=== PATIENT | male | born 1960 | race Caucasian/White ===

== ENCOUNTER 2024-11-07 17:38 | Inpatient (IN) | payer OTHER ==
[~2024-11-07] VITALS: Ht 188 cm; Wt 104.3 kg
[2024-11-07 20:00] VITALS: BP 122/85; PULSE 48; RESP 20; TEMP 97.9; O2SAT 98
[2024-11-07] MEDS ORDERED: MELATONIN 3 MG TABLET PO PRN (20:45)
[2024-11-07] MEDS ORDERED: DOCUSATE SODIUM 100 MG CAPSULE PO SCH (21:00)
[2024-11-07] MEDS ORDERED: SENNOSIDES 8.6 MG TABLET PO SCH (21:00)
[2024-11-07] MEDS ORDERED: BISACODYL 10 MG RECTAL RECTAL SUPPOSITORY PR PRN (21:30)
[2024-11-07] MEDS ORDERED: SENNOSIDES/DOCUSATE SODIUM 8.6-50 MG TABLET PO PRN (21:30)
[2024-11-07] MEDS ORDERED: HYDROCODONE/ACETAMINOPHEN 5-325 MG TABLET PO PRN (21:30)
[2024-11-07] MEDS ORDERED: LACTULOSE 20 GM/30 ML SOLUTION UDCUP PO PRN (21:30)
[2024-11-07] MEDS: APIXABAN 5 MG TABLET PO ONE (23:25)
[2024-11-07] MEDS: FAMOTIDINE 20 MG TABLET PO ONE (23:25)
[2024-11-07 23:40] LABS: GLUCOMETER DEV NAME(LOC) 2WR.1D; GLUCOSE,POINT OF CARE 141 MG/DL (70-110)
[2024-11-08] MEDS: DESMOPRESSIN ACETATE 0.1 MG TABLET PO ONE (00:35)
[2024-11-08] MEDS: DESMOPRESSIN ACETATE 0.2 MG TABLET PO ONE (00:35)
[2024-11-08] MEDS: LEVOTHYROXINE SODIUM 50 MCG TABLET PO SCH (06:33)
[2024-11-08 06:56] LABS: GLUCOMETER DEV NAME(LOC) 2WR.1D; GLUCOSE,POINT OF CARE 90 MG/DL (70-110)
[2024-11-08 07:04] LABS: PLATELET COUNT (AUTO) 223 K/uL (150-450); RED BLOOD CELL COUNT(AUTO) 3.66 MIL/uL (4.50-5.90); RED CELL DISTRIBUTION WIDTH 13.8 % (11.5-14.5); WHITE BLOOD COUNT (AUTO) 5.5 K/uL (4.5-11.0)
[2024-11-08 07:28] LABS: ASPARTATE AMINOTRANSFERASE 24 U/L (15-37); CALCIUM, TOTAL 8.5 mg/dL (8.8-10.5); CREATININE 0.85 mg/dL (0.60-1.30); GLOMERULAR FILTR. RATE CALC > 60 mL/min (>60); GLUCOSE,RANDOM 82 mg/dL (70-110); SODIUM SERUM 141 mmol/L (136-145); TOTAL PROTEIN, SERUM 5.5 g/dL (6.4-8.2); UREA NITROGEN, BLOOD 13 mg/dL (7-18)
[2024-11-08 08:00] VITALS: BP 146/92; PULSE 52; RESP 17; TEMP 98; O2SAT 96
[2024-11-08] MEDS: ROSUVASTATIN CALCIUM 10 MG TABLET PO SCH (08:02)
[2024-11-08] MEDS: FAMOTIDINE 20 MG TABLET PO SCH (08:02)
[2024-11-08] MEDS: SODIUM CHLORIDE 0.65% 44 ML NASAL SPRAY NASAL SCH (08:02)
[2024-11-08] MEDS: POLYETHYLENE GLYCOL 3350 17 GM PACKET PO SCH (08:02)
[2024-11-08] MEDS: HYDROCORTISONE 10 MG TABLET PO SCH ×2 (08:03→17:26)
[2024-11-08] MEDS: DESMOPRESSIN ACETATE 0.2 MG TABLET PO SCH (08:03)
[2024-11-08] MEDS: APIXABAN 5 MG TABLET PO SCH (08:04)
[2024-11-08] MEDS: DIGOXIN 125 MCG TABLET PO SCH (09:18)
[2024-11-08 13:31] LABS: GLUCOMETER DEV NAME(LOC) 2WR.1D; GLUCOSE,POINT OF CARE 108 MG/DL (70-110)
[2024-11-08] MEDS: ACETAMINOPHEN 325 MG TABLET PO PRN (14:30)
[2024-11-08 17:56] LABS: GLUCOMETER DEV NAME(LOC) 2WR.2C; GLUCOSE,POINT OF CARE 102 MG/DL (70-110)
[2024-11-08 20:02] VITALS: BP 123/86; PULSE 52; RESP 18; TEMP 98.1; O2SAT 96
[2024-11-09 06:06] LABS: GLUCOMETER DEV NAME(LOC) 2WR.2C; GLUCOSE,POINT OF CARE 164 MG/DL (70-110)
[2024-11-09 06:50] LABS: GLUCOMETER DEV NAME(LOC) 2WR.1D; GLUCOSE,POINT OF CARE 88 MG/DL (70-110)
[2024-11-09 08:00] VITALS: BP 149/82; PULSE 57; RESP 18; TEMP 97.8; O2SAT 98
[2024-11-09] MEDS: DESMOPRESSIN ACETATE 0.1 MG TABLET PO SCH (09:17)
[2024-11-09 12:41] LABS: GLUCOMETER DEV NAME(LOC) 2WR.1D; GLUCOSE,POINT OF CARE 112 MG/DL (70-110)
[2024-11-09 12:48] VITALS: BP 105/74; PULSE 48; RESP 18
[2024-11-09 17:15] LABS: GLUCOMETER DEV NAME(LOC) 2WR.2C; GLUCOSE,POINT OF CARE 115 MG/DL (70-110)
[2024-11-09 21:20] VITALS: BP 116/87; PULSE 49; RESP 19; TEMP 97.3; O2SAT 97
[2024-11-09 23:45] VITALS: O2SAT 97
[2024-11-09 23:51] LABS: GLUCOMETER DEV NAME(LOC) 2WR.1D; GLUCOSE,POINT OF CARE 122 MG/DL (70-110)
[2024-11-10 08:00] VITALS: BP 141/106; PULSE 54; RESP 19; TEMP 98.2; O2SAT 97
[2024-11-10 08:00] LABS: GLUCOMETER DEV NAME(LOC) 2WR.2C; GLUCOSE,POINT OF CARE 83 MG/DL (70-110)
[2024-11-10] MEDS ORDERED: SODIUM CHLORIDE 1 GM TABLET PO SCH (11:00)
[2024-11-10 13:39] VITALS: O2SAT 97
[2024-11-10 17:45] LABS: GLUCOMETER DEV NAME(LOC) 2WR.1D; GLUCOSE,POINT OF CARE 158 MG/DL (70-110)
[2024-11-10] MEDS: SODIUM CHLORIDE 0.65% 44 ML NASAL SPRAY NASAL SCH (17:58)
[2024-11-10 20:03] VITALS: BP 100/65; PULSE 60; RESP 18; TEMP 98.4; O2SAT 96
[2024-11-10 22:00] VITALS: O2SAT 96
[2024-11-11 07:00] LABS: GLUCOMETER DEV NAME(LOC) 2WR.2C; GLUCOSE,POINT OF CARE 106 MG/DL (70-110)
[2024-11-11 07:35] VITALS: BP 114/91; PULSE 50; RESP 19; TEMP 97.6; O2SAT 97
[2024-11-11 08:00] VITALS: BP 115/63; PULSE 54
[2024-11-11] MEDS: SODIUM BICARBONATE NASAL SCH (09:00)
[2024-11-11] MEDS: [UNRECOGNIZED DRUG - OTHER] NASAL SCH (09:00)
[2024-11-11] MEDS: SODIUM CHLORIDE NASAL SCH (09:00)
[2024-11-11 09:25] VITALS: BP 98/68; PULSE 67; O2SAT 96
[2024-11-11 17:30] LABS: GLUCOMETER DEV NAME(LOC) 2WR.2C; GLUCOSE,POINT OF CARE 104 MG/DL (70-110)
[2024-11-11 20:00] VITALS: BP 106/64; PULSE 61; RESP 18; TEMP 98.1; O2SAT 96
[2024-11-11] MEDS: DESMOPRESSIN ACETATE 0.1 MG TABLET PO SCH (21:16)
[2024-11-12 07:16] LABS: GLUCOMETER DEV NAME(LOC) 2WR.1D; GLUCOSE,POINT OF CARE 99 MG/DL (70-110)
[2024-11-12 08:05] VITALS: BP 129/94; PULSE 51; RESP 18; TEMP 98.3; O2SAT 97
[2024-11-12 10:30] VITALS: O2SAT 97
[2024-11-12] MEDS ORDERED: HYDR5TAB8 PO (18:59)
[2024-11-12] MEDS ORDERED: SENN-395 PO (18:59)
[2024-11-12] MEDS ORDERED: HYDR-3887 PO (18:59)
[2024-11-12] MEDS ORDERED: DESM0.1T6 PO (18:59)
[2024-11-12] MEDS ORDERED: SODI44SP18 NASAL (18:59)
[2024-11-12] MEDS ORDERED: ACET-2247 PO (18:59)
[2024-11-12] MEDS ORDERED: LEVO125T95 PO (18:59)
[2024-11-12] MEDS ORDERED: FAMO20 PO (18:59)
[2024-11-12] MEDS ORDERED: ROSU10TA72 PO (18:59)
[2024-11-12] MEDS ORDERED: DIGO125T84 PO (18:59)
[2024-11-12] MEDS ORDERED: POLY17PO47 PO (18:59)
[2024-11-12] MEDS ORDERED: APIX5TAB PO (18:59)
[2024-11-12 20:00] VITALS: BP 110/79; PULSE 61; RESP 19; TEMP 98.2; O2SAT 96
[2024-11-13 07:05] LABS: GLUCOMETER DEV NAME(LOC) 2WR.1D; GLUCOSE,POINT OF CARE 96 MG/DL (70-110)
[2024-11-13 07:52] VITALS: BP 117/88; PULSE 46; RESP 18; TEMP 97.7; O2SAT 100
[2024-11-13 08:49] LABS: SODIUM SERUM 142.0 mmol/L (136-145)
[2024-11-13 09:20] VITALS: BP 115/76; PULSE 58
[2024-11-13 11:47] VITALS: O2SAT 98
[2024-11-13 20:00] VITALS: O2SAT 95
[2024-11-13 20:38] VITALS: BP 116/89; PULSE 60; RESP 16; TEMP 98.1; O2SAT 95
[2024-11-14] MEDS: LEVOTHYROXINE SODIUM 75 MCG TABLET PO SCH (05:42)
[2024-11-14 07:30] VITALS: BP 121/90; PULSE 46; RESP 17; TEMP 98.3; O2SAT 98
[2024-11-14 07:41] LABS: GLUCOMETER DEV NAME(LOC) 2WR.1D; GLUCOSE,POINT OF CARE 101 MG/DL (70-110)
[2024-11-14 09:22] VITALS: BP 118/86; PULSE 60
[2024-11-14 11:28] VITALS: O2SAT 98
[2024-11-14] MEDS ORDERED: LEVO50 PO (11:44)
[2024-11-14 12:39] LABS: CALCIUM, TOTAL 8.9 mg/dL (8.8-10.5); CREATININE 0.85 mg/dL (0.60-1.30); GLOMERULAR FILTR. RATE CALC > 60 mL/min (>60); GLUCOSE,RANDOM 86 mg/dL (70-110); SODIUM SERUM 147 mmol/L (136-145); UREA NITROGEN, BLOOD 16 mg/dL (7-18)
[2024-11-14 15:33] VITALS: BP 120/85; PULSE 58; RESP 18; TEMP 97.9; O2SAT 95
[2024-11-14 20:00] VITALS: BP 115/88; PULSE 60; RESP 18; TEMP 97.5; O2SAT 97; O2SAT 99
[2024-11-15] MEDS: LEVOTHYROXINE SODIUM 50 MCG TABLET PO SCH (06:14)
[2024-11-15 06:53] LABS: CALCIUM, TOTAL 8.6 mg/dL (8.8-10.5); CREATININE 0.82 mg/dL (0.60-1.30); GLOMERULAR FILTR. RATE CALC > 60 mL/min (>60); GLUCOSE,RANDOM 89 mg/dL (70-110); SODIUM SERUM 142 mmol/L (136-145); UREA NITROGEN, BLOOD 17 mg/dL (7-18)
[2024-11-15 08:00] VITALS: BP 116/89; PULSE 55; RESP 18; TEMP 97.3; O2SAT 98
[2024-11-15] MEDS ORDERED: SODI44SP18 NASAL (09:59)
[2024-11-15] MEDS ORDERED: LEVO50 PO (09:59)
[2024-11-15] MEDS ORDERED: SODI1KIT NASAL (09:59)
[2024-11-15] MEDS ORDERED: LEVO75 PO (09:59)
[2024-11-15] MEDS ORDERED: HYDR-3887 PO ×2 (09:59)
[2024-11-15] MEDS ORDERED: FAMO20 PO (09:59)
[2024-11-15] MEDS ORDERED: POLY17PO62 PO (09:59)
[2024-11-15] MEDS ORDERED: APIX5TAB PO (09:59)
[2024-11-15] MEDS ORDERED: DIGO125T84 PO (09:59)
[2024-11-15] MEDS ORDERED: ROSU10TA72 PO (09:59)
[2024-11-15] MEDS ORDERED: DESM0.1T6 PO (09:59)
[2024-11-15 20:04] VITALS: BP 127/83; PULSE 74; RESP 18; TEMP 97.7; O2SAT 97
[2024-11-15 23:59] VITALS: O2SAT 97
[2024-11-16 08:00] VITALS: BP 130/94; PULSE 52; RESP 18; TEMP 98.1; O2SAT 98
[2024-11-16 08:05] VITALS: PULSE 64
== END 2024-11-16 13:30 | disposition home or self-care (01) | DRG 57 ==
LOC: 2WR 19:00
PROVIDERS: ADMIT Physical Medicine & Rehabilitation; ATTEND Physical Medicine & Rehabilitation
DX: I69.351 Hemiplegia and hemiparesis following cerebral infarction affecting right dominant side (principal); E27.40 Unspecified adrenocortical insufficiency; E87.1 Hypo-osmolality and hyponatremia; I82.493 Acute embolism and thrombosis of other specified deep vein of lower extremity, bilateral; H53.2 Diplopia; R41.89 Other symptoms and signs involving cognitive functions and awareness; Z74.09 Other reduced mobility; E23.6 Other disorders of pituitary gland; E03.8 Other specified hypothyroidism; D64.9 Anemia, unspecified; K81.1 Chronic cholecystitis; I10 Essential (primary) hypertension; E78.5 Hyperlipidemia, unspecified; I48.91 Unspecified atrial fibrillation; E11.319 Type 2 diabetes mellitus with unspecified diabetic retinopathy without macular edema; R35.89 Other polyuria; H91.8X2 Other specified hearing loss, left ear; H53.8 Other visual disturbances; Z79.899 Other long term (current) drug therapy; Z79.01 Long term (current) use of anticoagulants; I69.320 Aphasia following cerebral infarction; Z79.82 Long term (current) use of aspirin
CPT/HCPCS: 80048; 80053; 82962; 84295; 84439; 85025; 92507; 92523; 93005; 97110; 97112; 97116; 97163; 97167; 97530; 97535; 99285; 99366